=== PATIENT | female | born 1940 | race African-American/Black ===

== ENCOUNTER → 2017-01-04 | Outpatient (CLI) | payer OTHER ==
[~2017-01-04] MED LIST: ACETAMINOPHEN 650 MG RECTAL; CALCIUM 500+D1 EAC2 PO; CYCLOBENZAPRINE10 MG PO; FELDENE20 MG PO; FISH OIL 1,0001 EAC5 PO; FOSAMAX 70 MG T70 MG PO; HYDROCHLOROTH12.5 MG PO; LISINOPRIL10 MG PO; MACROBID 100 M100 M1 PO; MIRALAX255 GM PO; NORCO 5-325 TA1 EACH PO; POLYETHYLENE G255 GM PO; TOPROL XL25 MG PO; ULTRAM 50MG TAB50 MG PO; VENTOLIN HFA 1818 GM INH
== END ==
LOC: PUL 09:42
DX: R05 Cough (principal); Z87.891 Personal history of nicotine dependence

== ENCOUNTER 2017-11-07 10:27 | Emergency (ER) | payer OTHER ==
[~2017-11-07] VITALS: Ht 165.1 cm; Wt 59.0 kg
[~2017-11-07 10:27] MED LIST changes: +COLACE100 MG PO
[2017-11-07] MEDS ORDERED: ULTRAM 50MG TAB50 MG PO (12:48)
[2017-11-07 13:32] VITALS: BP 140/81
== END 2017-11-07 13:02 | disposition home or self-care (01) ==
LOC: ER 10:27
DX: S20.211A Contusion of right front wall of thorax, initial encounter (principal); X58.XXXA Exposure to other specified factors, initial encounter; Y93.89 Activity, other specified; Y92.89 Other specified places as the place of occurrence of the external cause; Y99.8 Other external cause status

== ENCOUNTER 2019-02-13 16:10 | Inpatient (IN) | payer OTHER ==
[~2019-02-13] VITALS: Ht 167.6 cm; Wt 67.3 kg
[2019-02-13 16:10] VITALS: BP 152/80
[2019-02-13 17:08] LABS: URINE BILIRUBIN NEGATIVE (Negative); URINE BLOOD NEGATIVE (Negative); URINE CLARITY SL CLOUDY; URINE COLOR YELLOW; URINE GLUCOSE-RANDOM* NEGATIVE (Negative); URINE KETONES NEGATIVE (Negative); URINE LEUKOCYTES-REFLEX TRACE (Negative); URINE NITRITE-REFLEX POSITIVE (Negative); URINE PROTEIN (DIPSTICK) 1+ (Negative); URINE SPECIFIC GRAVITY 1.025 (1.005-1.035); URINE UROBILINOGEN 0.2 E.U./dl (0.2-1.0)
[2019-02-13 17:20] LABS: BACTERIA-REFLEX >30 Many /HPF (None Seen); CASTS None Seen /LPF (None Seen); CRYSTALS None Seen /LPF (None Seen); SQUAMOUS 0-3 Few /LPF (0-3); URINE RBC None Seen /HPF (0-2); URINE WBC-REFLEX 6-15 Few /HPF (0-5)
[2019-02-13 17:27] LABS: ABSOLUTE NEUTROPHILS 5.2 thou/uL (1.4-8.2); BASOPHILS 1.3 % (0.0-2.0); EOSINOPHILS 1.8 % (0.0-3.0); HEMATOCRIT 43.1 % (37.0-47.0); HEMOGLOBIN 14.2 gm/dL (12.0-15.0); LYMPHOCYTES 27.1 % (24.0-44.0); MCH 27.5 pg (26.0-34.0); MCHC 33.1 g/dL (28.0-37.0); MONOCYTES 6.4 % (1.0-8.0); PLATELET COUNT 219 thou/uL (150-400); POLYS 63.4 % (36.0-66.0); RBC 5.19 mil/uL (4.20-5.00); RDW 13.8 % (10.5-14.5); WBC 8.1 thou/uL (4.0-11.0)
[2019-02-13] MEDS ORDERED: NORVASC5 MG PO (17:37)
[2019-02-13 17:38] LABS: CALCIUM 9.7 mg/dL (8.5-10.1); CREATININE 0.9 mg/dL (0.6-1.0); POTASSIUM 4.1 mmol/L (3.5-5.1)
[2019-02-13] MEDS ORDERED: LOTENSIN10 MG PO (17:38)
[2019-02-13] MEDS ORDERED: ASPIR 8181 MG PO (17:38)
[2019-02-13 17:44] LABS: ALBUMIN 3.8 g/dL (3.4-5.0); TOTAL BILIRUBIN 0.3 mg/dL (<0.1-1.0); TOTAL PROTEIN 7.7 g/dL (6.4-8.2)
[2019-02-13 20:15] VITALS: BP 141/90
[2019-02-13 20:35] VITALS: BP 166/97
[2019-02-13 20:54] VITALS: BP 161/100
--- NOTE | 2019-02-14 01:50 | NUR ---
ASSUMED CARE OF PT AT 2044HRS. PT IS AOX4 AND WAS ABLE TO ANSWER ALL ADMISSION RELATED QUESTIONS. NO COMPLAINTS OF NAUSEA OR VOMITING AT THIS TIME. PT DID NOT REPORT ANY PAIN AT THIS TIME. PT WAS ORITNTED TO THE ROOM AND SIGNED CONSENTS. THE NIGHT PROGRESSED, PT REPORTED [id number] PAIN AND WAS TREATED WITH MEDICATION. NO COMPAINTS OF N/V. NO OTHER S/S OF ACUTE DISTRESS. PT WAS ABLE TO GET SOME SLEEP. WILL CONTINUE TO MONITOR.
[2019-02-14 04:50] VITALS: BP 144/95
[2019-02-14 07:14] VITALS: BP 134/70
--- NOTE | 2019-02-14 08:29 | NUR ---
PT IS A&0X4, AMB STEADY, IVF RUNNING, NPO CURRENTLY FOR PROCEDURE THIS A.M. ADM PAIN/ANTIEMETIC AND IV ABX AND GOT PT A WARM BLANKET. GOAL FOR TODAY TO FEEL BETTER AND ENSURE SOMEONE TAKES CARE OF HER DOG
[2019-02-14 11:03] LABS: HEMATOCRIT 37.5 % (37.0-47.0); HEMOGLOBIN 12.4 gm/dL (12.0-15.0); MCH 27.6 pg (26.0-34.0); MCHC 33.2 g/dL (28.0-37.0); MCV 83.4 fL (80.0-100.0); RBC 4.5 mil/uL (4.20-5.00); WBC 6.8 thou/uL (4.0-11.0)
[2019-02-14 11:16] LABS: CALCIUM 8.6 mg/dL (8.5-10.1); CREATININE 0.8 mg/dL (0.6-1.0)
[2019-02-14 14:12] VITALS: BP 117/79
--- NOTE | 2019-02-14 14:26 | NUR ---
CM REVIEWED CHART AND SPOKE WITH CARE TEAM. CM MET WITH PT AT BEDSIDE THIS DAY. PT IS A&O X4. CM ROLE INTRODCUED. PT INDICATED SHE LIVES IN AN APARTMENT ALONE WITH NO STEPS TO ENTER AND NO STEPS INSIDE. 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 PT INDICATED NO HH OR DME. PT INDICATED SHE PLANS TO RETURN HOME ONCE MEDICALLY STABLE. CM TO FOLLOW INDICATED WITH DC PLANNING.
[2019-02-14 20:01] VITALS: BP 133/65
--- NOTE | 2019-02-15 03:19 | NUR ---
ASSUMED CARE OF PT AT 1900HRS. PT AOX4 AND UP AD TRENA. PT DID COMPLAIN OF SOME ABD PAIN AND WAS TREATED WITH MEDS. NO N/V WAS REPORTED THIS SHIFT. PT ABLE TO TOLERATE PO FLUIDS AND SOLIDS. NO BM THIS SHIFT. NO OTHER S/S OF ACUTE DISTRESS. WILL CONTINUE TO MONITOR.
[2019-02-15 05:08] VITALS: BP 145/83
[2019-02-15 07:34] VITALS: BP 136/93
[2019-02-15 13:58] VITALS: BP 125/84
--- NOTE | 2019-02-15 15:03 | NUR ---
ORDERS FOR PT EVAL AND TREAT RECEIVED. PER RN Pt HAS HAD NO ISSUES WITH GAIT. Pt HAS BEEN UP AD TRENA PUSHING HER IV POLE. UPON PT ENTERING Pt'S ROOM, Pt UP AMBULATING TO BATHROOM PUSHING IV POLE. STEADY RECIP GAIT. COMPLETED TOILETING WITHOUT ASSIST. RETURNED TO EOB AND SUPINE WITHOUT ASSIST. Pt LIVES IN APT ALONE WITH NO STEPS. AMBULATORY WITHOUT AD. INDEP ADLs AND IADLs. REPORTS NO HISTORY OF FALLS. Pt STATED SHE DID NOT HAVE ANY BALANCE ISSUES. HAS BEEN TO PT IN THE PAST AN OUTPATIENT INCLUDING AQUATIC THERAPY FOR OSTEOPOROSIS PER Pt. Pt STATED SHE DOES NOT HAVE PT NEEDS AT THIS TIME. ACUTE PT TO SIGN OFF.
--- NOTE | 2019-02-15 16:56 | NUR ---
CARE TEAM INDICATED THAT PT IS PROGRESSING TOWARD GOAL OF DISCHARGE. IT IS ANTICPATED THAT PT WILL LIKELY BE MEDICALLY STABLE TO DISCHARGE HOME TOMORROW. CM TO FOLLOW INDICATED WITH DC PLANNING.
--- NOTE | 2019-02-15 20:24 | NUR ---
PATIENT ALERT AND ORIENTED X 4. AND WALKING ON UNIT AND DRINKING FLUIDS TO ATTEMPT TO HAVE BM. LATER IN AFTERNOON PATIENT HAD 3 LARGE LOOSE BM'S. PATIENT ANTICIPATES TO DISCHARGE TOMORROW ESPECIALLY SINCE NO ONE HAS CARED FOR HER SMALL DOG AT HOME. PATIENT IS VERY COMPLIANT WITH PLAN OF CARE.
[2019-02-15 20:44] VITALS: BP 147/92
--- NOTE | 2019-02-16 02:11 | NUR ---
ASSUMED CARE AROUND 1899. AXOX4. NO BM SO FAR. PAIN TX PER MD ORDER. NO S/S ACUTE DISTRESS NOTED OR REPORTED AT THIS TIME. WILL CONT TO MONITOR FOR ANY CHANGES IN CONDITION.
[2019-02-16 04:53] VITALS: BP 153/86
[2019-02-16 07:24] VITALS: BP 138/86
[2019-02-16 10:06] VITALS: BP 138/86
--- NOTE | 2019-02-16 10:08 | NUR ---
PT VITAL SIGNS STABLE THIS MORNING. PT ABLE TO EAT BREAKFAST, NO C/O NV. PT HAD BM'S YESTERDAY AND LAST NIGHT. PT STATES SHE "FEELS MUCH BETTER AND IS READY TO GO HOME". PT DISCHARGED HOME. PT LEFT VIA WHEELCHAIR TO PRIVATE VEHICLE.
--- NOTE | 2019-02-16 10:15 | NUR ---
CARE TEAM INDICATED THAT PT IS MEDCIALLY STABLE TO DC HOME THIS DAY. CM PROVIDED PT WITH INFO ON PCP'S HERE AT [facility] [facility] PER HER REQUEST. PT IS TO DC HOME TO SELF CARE. NO OTHER CM INTERVENTION INDICATED AT THIS TIME. CASE CLOSED.
== END 2019-02-16 10:45 | disposition home or self-care (01) | DRG 389 ==
LOC: ER 16:10 → EROBS 19:19 → 4W 19:19 → ENTRNSPT 02-16 10:12 → EDTRNSPTSTS 02-16 10:26 → 4W 02-16 10:45
PROVIDERS: Emergency Medicine; ADMIT Internal Medicine
DX: K56.600 Partial intestinal obstruction, unspecified as to cause (principal); N39.0 Urinary tract infection, site not specified; M81.0 Age-related osteoporosis without current pathological fracture; K59.09 Other constipation; I10 Essential (primary) hypertension; Z87.891 Personal history of nicotine dependence; Z90.49 Acquired absence of other specified parts of digestive tract; Z90.710 Acquired absence of both cervix and uterus; Z79.899 Other long term (current) drug therapy; Z88.8 Allergy status to other drugs, medicaments and biological substances
CPT/HCPCS: 10040; 10045

== ENCOUNTER 2019-06-06 17:32 | Emergency (ER) | payer OTHER ==
[~2019-06-06] VITALS: Ht 167.6 cm; Wt 63.5 kg
[~2019-06-06 17:32] MED LIST changes: +ASPIR 8181 MG PO; +LOTENSIN10 MG PO; +NORVASC5 MG PO
[2019-06-06 19:46] LABS: URINE BILIRUBIN NEGATIVE (Negative); URINE BLOOD NEGATIVE (Negative); URINE CLARITY CLEAR; URINE COLOR YELLOW; URINE GLUCOSE-RANDOM* NEGATIVE (Negative); URINE KETONES NEGATIVE (Negative); URINE NITRITE-REFLEX NEGATIVE (Negative); URINE PROTEIN (DIPSTICK) NEGATIVE (Negative); URINE UROBILINOGEN 0.2 E.U./dl (0.2-1.0)
[2019-06-06 19:48] LABS: URINE LEUKOCYTES-REFLEX 1+ (Negative)
[2019-06-06 19:57] LABS: BACTERIA-REFLEX 1-9 Few /HPF (None Seen); CASTS None Seen /LPF (None Seen); CRYSTALS None Seen /LPF (None Seen); MUCUS None Seen strn/LPF (None Seen); SQUAMOUS 4-10 Moderate /LPF (0-3); URINE RBC None Seen /HPF (0-2); URINE WBC-REFLEX 0-5 Rare /HPF (0-5)
[2019-06-06] MEDS ORDERED: NORFLEX100 MG PO (19:59)
[2019-06-06] MEDS ORDERED: ULTRAM 50MG TAB50 MG PO (19:59)
[2019-06-06] MEDS ORDERED: NAPROXEN250 MG PO (19:59)
[2019-06-06 20:14] VITALS: BP 157/93
== END 2019-06-06 20:18 | disposition home or self-care (01) ==
LOC: ER 17:32
PROVIDERS: Emergency Medicine
DX: S39.012A Strain of muscle, fascia and tendon of lower back, initial encounter (principal); I10 Essential (primary) hypertension; M81.0 Age-related osteoporosis without current pathological fracture; K56.609 Unspecified intestinal obstruction, unspecified as to partial versus complete obstruction; Z90.49 Acquired absence of other specified parts of digestive tract; Z90.89 Acquired absence of other organs; Z98.890 Other specified postprocedural states; Z88.6 Allergy status to analgesic agent; Z87.891 Personal history of nicotine dependence; X58.XXXA Exposure to other specified factors, initial encounter; Y92.89 Other specified places as the place of occurrence of the external cause; Y93.89 Activity, other specified; Y99.8 Other external cause status

== ENCOUNTER 2020-01-20 08:25 | Emergency (ER) | payer OTHER ==
[~2020-01-20] VITALS: Ht 167.6 cm; Wt 63.5 kg
[~2020-01-20 08:25] MED LIST changes: +NAPROXEN250 MG PO; +NORFLEX100 MG PO
[2020-01-20 09:03] LABS: HEMATOCRIT 40.3 % (37.0-47.0); HEMOGLOBIN 13.4 gm/dL (12.0-15.0); MCH 27.7 pg (26.0-34.0); MCHC 33.3 g/dL (28.0-37.0); PLATELET COUNT 246 thou/uL (150-400); RBC 4.85 mil/uL (4.20-5.00); RDW 13.6 % (10.5-14.5)
[2020-01-20 09:15] LABS: ANION GAP 7 mmol/L (7-16); BUN 12 mg/dL (7-18); CALCIUM 9.2 mg/dL (8.5-10.1); CHLORIDE 101 mmol/L (98-107); CO2 27 mmol/L (21-32); GLUCOSE 95 mg/dL (74-106); POTASSIUM 4.1 mmol/L (3.5-5.1); SODIUM 135 mmol/L (136-145)
[2020-01-20 09:25] LABS: ALBUMIN 3.4 g/dL (3.4-5.0); SGOT 21 U/L (15-37); SGPT 25 U/L (30-65); TOTAL BILIRUBIN 0.6 mg/dL (<0.1-1.0); TOTAL PROTEIN 7.7 g/dL (6.4-8.2); TROPONIN-I <0.06 ng/mL (<0.06)
[2020-01-20 10:33] VITALS: BP 132/81
[2020-01-20] MEDS ORDERED: PREDNISONE 20 M20 MG PO (10:35)
[2020-01-20] MEDS ORDERED: PROAIR HFA8.5 GM INH (10:35)
[2020-01-20] MEDS ORDERED: DOXYCYCLINE 10100 MG PO (10:35)
--- NOTE | 2020-01-21 08:58 | EKG ---
[facility] [place] [address] ELECTROCARDIOGRAM REPORT Name: VINCE MCKEON Room #: DEP [facility]#: [id number] Admission: 01/20/20 Attend Phys: Discharge: 01/20/20 Date of : 38 Report #: [id number] THIS REPORT FOR: cc: Smooth Richter James A. DO Lundgren, Craig H. 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
== END 2020-01-20 10:33 | disposition home or self-care (01) ==
LOC: ER 08:25
PROVIDERS: Student in an Organized Health Care Education/Training Program
DX: J21.9 Acute bronchiolitis, unspecified (principal); I10 Essential (primary) hypertension; M81.0 Age-related osteoporosis without current pathological fracture; Z90.49 Acquired absence of other specified parts of digestive tract; Z90.89 Acquired absence of other organs; Z98.890 Other specified postprocedural states

== ENCOUNTER 2021-04-28 12:06 | Emergency (ER) | payer OTHER ==
[~2021-04-28] VITALS: Ht 167.6 cm; Wt 63.5 kg
[~2021-04-28 12:06] MED LIST changes: +DOXYCYCLINE 10100 MG PO; +PREDNISONE 20 M20 MG PO; +PROAIR HFA8.5 GM INH
[2021-04-28 12:23] VITALS: BP 140/81
[2021-04-28] MEDS ORDERED: HYDROCODON-ACE1 EAC7 PO (14:12)
[2021-04-29] MEDS ORDERED: NORCO5 PO (13:30)
== END 2021-04-28 14:23 | disposition home or self-care (01) ==
LOC: ER 12:06
DX: M25.561 Pain in right knee (principal); I10 Essential (primary) hypertension; M81.0 Age-related osteoporosis without current pathological fracture; Z90.49 Acquired absence of other specified parts of digestive tract; Z90.710 Acquired absence of both cervix and uterus; Z90.89 Acquired absence of other organs; Z98.890 Other specified postprocedural states; Z79.51 Long term (current) use of inhaled steroids; Z79.82 Long term (current) use of aspirin; Z79.899 Other long term (current) drug therapy; Z88.6 Allergy status to analgesic agent; Z91.09 Other allergy status, other than to drugs and biological substances; Z87.891 Personal history of nicotine dependence